=== PATIENT | female | born 1990 | race American Indian/Alaskan Native ===

== ENCOUNTER 2017-12-19 08:51 | Emergency (ER) | payer SELFPAY ==
[2017-12-19 09:50] LABS: Bacteria,Urine 1+ /HPF (Negative); Bilirubin,Urine NEG (Negative); Blood,Urine NEG (Negative); Color,Urine Yellow (Yellow); HCG Qualitative,Urine Negative (Negative); Mucus,Urine 2+ /HPF; RBC,Urine < 1.0 /HPF (0.0-6.0); Urobilinogen,Urine < 2.0 mg/dL (<2.0)
[2017-12-19] MEDS ORDERED: NACL 0.9% 1000 ML 1,000 ML IV ONE (10:31)
[2017-12-19] MEDS ORDERED: ZOFRAN IV ONE ×2 (10:31→12:55)
[2017-12-19] MEDS ORDERED: PEPCID IV ONE (10:32)
[2017-12-19] MEDS ORDERED: MILK OF MAGNESIA PO ONE (10:32)
[2017-12-19] MEDS ORDERED: MORPHINE IV ONE (10:34)
[2017-12-19 10:52] LABS: Hemoglobin 13.9 gm/dl (10.1-14.3); Mean Corpuscular HGB Conc 33 % (30-34); Mean Corpuscular Hemoglobin 28 pg (28-32); Mean Corpuscular Volume 85 fl (79-97); Red Blood Count 4.95 M/mm3 (3.65-5.03); Red Cell Distribution Width 15.2 % (13.2-15.2)
[2017-12-19 11:11] LABS: Albumin 3.9 g/dL (3.9-5); BUN/Creatinine Ratio 19; Blood Urea Nitrogen 13 mg/dL (7-17); Calcium 9.4 mg/dL (8.4-10.2); Hemolysis Index 92; Lipase 90 units/L (13-60)
[2017-12-19 11:28] LABS: Alanine Aminotransferase 14 units/L (7-56)
[2017-12-19] MEDS ORDERED: NACL ONE (11:31)
[2017-12-19 12:20] LABS: Anisocytosis 1+; Band Neutrophils # (Manual) 0.4 K/mm3; Basophils % (Manual) 0 % (0.0-1.8); Eosinophils % (Manual) 0 % (0.0-4.3); Platelet Estimate Consistent w Auto; Total Cells Counted 200
[2017-12-19 12:21] LABS: Platelet Count 274 K/mm3 (140-440)
[2017-12-19] MEDS ORDERED: DILAUDID IV ONE (12:55)
--- NOTE | 2017-12-19 13:00 | Cat Scan Report ---
CT ABDOMEN PELVIS WITH CONTRAST: HISTORY: Severe periumbilical pain radiating to epigastric region. COMPARISON: none. TECHNIQUE: Helical CT in 1.25mm intervals following IV contrast. Sagittal and coronal reconstructions. FINDINGS: Lung bases: Normal. Liver: Normal. Biliary system: Normal. Pancreas: Normal. Spleen: Normal. Kidneys/ureters/bladder: Normal. Adrenal glands: Normal. Aorta: Normal. Intestines: Normal. Appendix: Normal. Pelvic viscera: Normal. Ascites: None. Adenopathy: None. Musculoskeletal: Normal. IMPRESSION: Unremarkable CT scan of the abdomen and pelvis with contrast.
[2017-12-19] MEDS ORDERED: ROCEPHIN/NS 2 GM/100 ML 2 GM/100 ML BAG IV ONE (13:03)
[2017-12-19] MEDS ORDERED: cefTRIAXone 2 GM in NACL 0.9% 20 ML IV ONE (13:15)
[2017-12-19] MEDS ORDERED: FLAGYL 500 MG/100 ML 500 MG/100 ML BAG IV NR (14:00)
[2017-12-19 14:34] LABS: Amphetamine Screen,Urine PRESUMPTIVE NEGATIVE; Benzodiazepines Screen,Urine PRESUMPTIVE NEGATIVE; Cocaine Screen,Urine PRESUMPTIVE NEGATIVE; Methadone Screen,Urine PRESUMPTIVE NEGATIVE; Opiate Screen,Urine PRESUMPTIVE NEGATIVE
[2017-12-19 14:52] LABS: Cannabinoid Screen,Urine PRESUMPTIVE POSITIVE
[2017-12-19] MEDS ORDERED: ULTRAM ONE (15:51)
[2017-12-19] MEDS ORDERED: ULTRAM PO ONE (15:51)
[2017-12-19 16:27] VITALS: BP 110/58
== END 2017-12-19 16:03 | disposition home or self-care (01) ==
LOC: ED 08:51
DX: R11.2 Nausea with vomiting, unspecified (principal); Z53.21 Procedure and treatment not carried out due to patient leaving prior to being seen by health care provider
CPT/HCPCS: 36415; 74177; 80053; 80307; 81001; 81025; 83690; 85007; 85025; 87210; 87591; J0696; J1170; J2270; J2405; J7030; Q9967

== ENCOUNTER 2017-12-23 10:35 | Emergency (ER) | payer SELFPAY ==
[2017-12-23 14:01] VITALS: BP 122/78
== END 2017-12-23 15:21 | disposition left against medical advice (07) ==
LOC: ED 10:35
DX: R10.9 Unspecified abdominal pain (principal); Z53.21 Procedure and treatment not carried out due to patient leaving prior to being seen by health care provider

== ENCOUNTER 2018-02-23 12:54 | Emergency (ER) | payer SELFPAY ==
[2018-02-23 14:05] VITALS: BP 162/94
[2018-02-23] MEDS ORDERED: ZOFRAN ODT PO ONE (14:05)
[2018-02-23 14:42] LABS: Alanine Aminotransferase 12 units/L (7-56); Albumin 3.5 g/dL (3.9-5); BUN/Creatinine Ratio 11; Blood Urea Nitrogen 8 mg/dL (7-17); Calcium 8.8 mg/dL (8.4-10.2); Hemolysis Index 4
[2018-02-23 14:49] LABS: Basophils % (Auto) 0.3 % (0.0-1.8); Hemoglobin 12.9 gm/dl (10.1-14.3); Lymphocytes # (Auto) 1.7 K/mm3 (1.2-5.4); Lymphocytes % (Auto) 9.2 % (13.4-35.0); Mean Corpuscular HGB Conc 32 % (30-34); Mean Corpuscular Hemoglobin 28 pg (28-32); Mean Corpuscular Volume 86 fl (79-97); Monocytes # (Auto) 1.2 K/mm3 (0.0-0.8); Monocytes % (Auto) 6.6 % (0.0-7.3); Platelet Count 343 K/mm3 (140-440); Red Blood Count 4.63 M/mm3 (3.65-5.03); Red Cell Distribution Width 14.1 % (13.2-15.2)
[2018-02-23] MEDS ORDERED: NACL 0.9% 1000 ML 1,000 ML IV ONE ×2 (17:29→18:48)
[2018-02-23] MEDS ORDERED: ZOFRAN IV ONE ×2 (17:29→21:16)
[2018-02-23] MEDS ORDERED: PEPCID IV ONE (17:29)
[2018-02-23] MEDS ORDERED: MORPHINE IV ONE ×2 (17:29→19:46)
--- NOTE | 2018-02-23 17:31 | Emergency Department Report ---
Blank Doc - Documentation Documentation: 30-year-old female with no previous abdominal surgery history presents to the hospital complaining of nausea, vomiting, diarrhea after eating a sandwich from [employer] yesterday. Patient started out with diarrhea now she has nausea vomiting with by mouth intolerance. Pain is in the upper abdomen area constant and worse with palpation. Patient complains of a little bit of blood in her vomitus today. No reports of fever Labs revealed. Positive leukocytosis Additional labs ordered, serum , UA pending CT pelvis IV contrast only Normal saline, morphine, Zofran, Pepcid initiated Mid-level to follow
--- NOTE | 2018-02-23 20:11 | Cat Scan Report ---
FINAL REPORT PROCEDURE: CT ABDOMEN PELVIS W CON TECHNIQUE: Computerized axial tomography of the abdomen and pelvis was performed after the IV injection of iodinated nonionic contrast. HISTORY: n,v,d wbc 19, epigastric pain COMPARISON: No prior studies are available for comparison. FINDINGS: Visualized lower thorax: No significant abnormality. Liver: No focal lesions are seen. The liver measures 19 centimeters craniocaudal. Spleen: Normal size and attenuation. Gallbladder and biliary system: Normal. Pancreas: Normal. Adrenals: Normal. Kidneys: Normal. GI tract: The appendix is visualized and does not appear inflamed. No bowel obstruction or acute inflammation is seen. Lymph nodes and mesentery: Normal. Vasculature: Normal. Bladder: Normal. Reproductive organs: Grossly unremarkable. Peritoneum: No free fluid. Musculoskeletal structures: No significant abnormality. Other: None. IMPRESSION: No acute abnormality is identified
[2018-02-23 20:56] LABS: Bilirubin,Urine NEG (Negative); Blood,Urine NEG (Negative); Color,Urine Yellow (Yellow); Mucus,Urine 3+ /HPF; RBC,Urine < 1.0 /HPF (0.0-6.0); Urobilinogen,Urine < 2.0 mg/dL (<2.0)
--- NOTE | 2018-02-24 01:00 | Emergency Department Report ---
ED N/V/D HPI - General Chief complaint: Nausea/Vomiting/Diarrhea Stated complaint: VOMITING Time Seen by Provider: 02/23/18 17:23 Source: patient Mode of arrival: Ambulatory Limitations: No Limitations - History of Present Illness Initial comments: 27-year-old female past medical history obesity presents with complaint of nausea vomiting diarrhea since yesterday. Patient states that she suspects she became sick after eating a sandwich from [employer]. Denies any current fevers chills chest pain shortness of breath. States that her nausea and abdominal pain are slightly better than when she first came to the ED. Patient has received fluid antiemetics and pain medicine. Patient is currently awake alert and oriented 3. Denies fevers or chills denies dysuria hematuria or increased urinary frequency. Denies any bloody stools. States she had slightly watery diarrhea and watery vomit earlier. Denies any recent travel or antibiotic use. MD complaint: nausea, vomiting, diarrhea, abdominal pain Onset/Timin -: days(s) Description of Vomiting: food contents, watery Description of Diarrhea: water Location: epigastric Severity: moderate Consistency: intermittent Context: possible food poisoning Associated Symptoms: nausea/vomiting - Related Data Previous Rx's Medication Instructions Recorded Last Taken Type HYDROcodone/APAP 5-325 [[place] 1 each PO Q6HR PRN #14 tablet 03/21/14 Unknown Rx 5/325] Hyoscyamine Subl [Levsin Sl] 0.125 mg SL Q4HR PRN #14 tablet 03/21/14 Unknown Rx Ondansetron [Zofran Odt] 4 mg PO Q4H #14 tab.rapdis 03/21/14 Unknown Rx Ondansetron [Zofran Odt] 4 mg PO Q4H PRN #14 tab.rapdis 03/21/14 Unknown Rx Cyclobenzaprine [Flexeril] 10 mg PO TID PRN #30 tablet 12/19/17 Unknown Rx Doxycycline Hyclate [Doxycycline 100 mg PO Q12HR #20 tab 12/19/17 Unknown Rx Hyclate TAB] metroNIDAZOLE [Flagyl TAB] 500 mg PO Q8HR #21 tablet 12/19/17 Unknown Rx Ondansetron [Zofran Odt] 4 mg PO Q8H PRN #14 tab.rapdis 02/24/18 Unknown Rx Allergies Allergy/AdvReac Type Severity Reaction Status Date / Time No Known Allergies Allergy Unverified 03/20/14 16:59 ED Review of Systems ROS: Stated complaint: VOMITING Other details as noted in HPI Constitutional: denies: chills, fever Eyes: denies: eye pain, eye discharge, vision change ENT: denies: ear pain, throat pain Respiratory: denies: cough, shortness of breath, wheezing Cardiovascular: denies: chest pain, palpitations Endocrine: no symptoms reported Gastrointestinal: nausea, vomiting. denies: abdominal pain, diarrhea Genitourinary: denies: urgency, dysuria, discharge Musculoskeletal: denies: back pain, joint swelling, arthralgia Skin: denies: rash, lesions Neurological: denies: headache, weakness, paresthesias Psychiatric: denies: anxiety, depression Hematological/Lymphatic: denies: easy bleeding, easy bruising ED Past Medical Hx - Past Medical History Previous Medical History?: Yes Hx Asthma: Yes Additional medical history: PCOS - Surgical History Past Surgical History?: Yes Additional Surgical History: T & A - Social History Smoking Status: Current Some Day Smoker Substance Use Type: None - Medications Home Medications: Home Medications Medication Instructions Recorded Confirmed Last Taken Type HYDROcodone/APAP 5-325 [[place] 1 each PO Q6HR PRN #14 tablet 03/21/14 Unknown Rx 5/325] Hyoscyamine Subl [Levsin Sl] 0.125 mg SL Q4HR PRN #14 tablet 03/21/14 Unknown Rx Ondansetron [Zofran Odt] 4 mg PO Q4H #14 tab.rapdis 03/21/14 Unknown Rx Ondansetron [Zofran Odt] 4 mg PO Q4H PRN #14 tab.rapdis 03/21/14 Unknown Rx Cyclobenzaprine [Flexeril] 10 mg PO TID PRN #30 tablet 12/19/17 Unknown Rx Doxycycline Hyclate [Doxycycline 100 mg PO Q12HR #20 tab 12/19/17 Unknown Rx Hyclate TAB] metroNIDAZOLE [Flagyl TAB] 500 mg PO Q8HR #21 tablet 12/19/17 Unknown Rx Ondansetron [Zofran Odt] 4 mg PO Q8H PRN #14 tab.rapdis 02/24/18 Unknown Rx ED Physical Exam - General Limitations: No Limitations General appearance: alert, in no apparent distress - Head Head exam: Present: atraumatic, normocephalic - Eye Eye exam: Present: normal appearance - ENT ENT exam: Present: mucous membranes moist - Neck Neck exam: Present: normal inspection - Respiratory Respiratory exam: Present: normal lung sounds bilaterally. Absent: respiratory distress - Cardiovascular Cardiovascular Exam: Present: regular rate, normal rhythm. Absent: systolic murmur, diastolic murmur, rubs, gallop - GI/Abdominal GI/Abdominal exam: Present: soft, normal bowel sounds - Extremities Exam Extremities exam: Present: normal inspection - Back Exam Back exam: Present: normal inspection - Neurological Exam Neurological exam: Present: alert, oriented X3 - Psychiatric Psychiatric exam: Present: normal affect, normal mood - Skin Skin exam: Present: warm, dry, intact, normal color. Absent: rash ED Course Vital Signs 02/23/18 02/23/18 02/23/18 14:01 18:37 21:03 Temperature 98.9 F Pulse Rate 62 Respiratory 18 22 18 Rate Blood Pressure 162/94 O2 Sat by Pulse 99 Oximetry ED Medical Decision Making - Lab Data Result diagrams: 02/23/18 14:09 02/23/18 14:09 - Medical Decision Making A/P: Acute gastroenteritis, possible food poisoning, nausea and vomiting 1-patient tolerating by mouth fluid and food before discharge 2-CT shows no acute appendicitis and no other acute abnormality 3-urinalysis unremarkable. Patient does have leukocytosis but it is possible that this can be treated to persistent retching nausea and vomiting for over one day and stress of acute gastroenteritis stated dehydration 4-Zofran when necessary. Vital signs stable for discharge. I advised patient to eat simple tolerable foods such as prostate Jell-O and soup mashed potatoes and to avoid anything excessively spicy or greasy. I advised patient to return to the ED if she cannot tolerate fluid or food by mouth or develops any fevers chills worsened abdominal pain. Patient stated she understood my instructions. Follow-up with primary care. Critical care attestation.: If time is entered above; I have spent that time in minutes in the direct care of this critically ill patient, excluding procedure time. ED Disposition Clinical Impression: Gastroenteritis, Potential for food poisoning Nausea & vomiting Qualifiers: Vomiting type: unspecified Vomiting Intractability: non-intractable Qualified Code(s): R11.2 - Nausea with vomiting, unspecified Disposition: DC-01 TO HOME OR SELFCARE Is pt being admited?: No Does the pt Need Aspirin: No Condition: Stable Instructions: Gastroenteritis (ED), Food Poisoning (ED) Prescriptions: Ondansetron [Zofran Odt] 4 mg PO Q8H PRN #14 tab.rapdis PRN Reason: Nausea Referrals: [facility] [Provider Group] - 3-5 Days [facility] [Outside] - 3-5 Days Forms: AMA Form, Work/School Release Form(ED) Time of Disposition: 01:00
== END 2018-02-24 00:45 | disposition home or self-care (01) ==
LOC: ED 12:54
DX: K52.9 Noninfective gastroenteritis and colitis, unspecified (principal); J45.909 Unspecified asthma, uncomplicated; E28.2 Polycystic ovarian syndrome; F17.200 Nicotine dependence, unspecified, uncomplicated; Z79.899 Other long term (current) drug therapy
CPT/HCPCS: 36415; 74177; 80053; 81001; 84702; 85025; 96361; 96374; 96375; 96376; 99284; J2270; J2405; J7030; Q9967; Q0162

== ENCOUNTER 2020-03-07 16:42 | Emergency (ER) | payer OTHER ==
[2020-03-07] MEDS ORDERED: MORPHINE 4 MG/1 ML INJ IV ONE (17:01)
[2020-03-07] MEDS ORDERED: SODIUM CHLORIDE 0.9% 1000 ML 1,000 ML IV ONE (17:02)
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
[2020-03-07] MEDS ORDERED: fentaNYL 100 MCG/2 ML INJ IV ONE (19:07)
--- NOTE | 2020-03-07 20:36 | Cat Scan Report ---
CT head without contrast INDICATION : Headache. TECHNIQUE: Axial imaging performed from the skull apex through the skull base without the use of con trast. All CT scans at this location are performed using CT dose reduction for ALARA by means of aut omated exposure control. COMPARISON: None FINDINGS: Parenchyma: No acute intracranial hemorrhage or parenchymal abnormality. Ventricles: Ventricles are normal in size and appear symmetric. Soft tissues: Soft tissues including the orbits appear normal. Bones: No acute osseous abnormality. Sinuses: Sinuses and mastoid air cells are clear. IMPRESSION: No acute abnormality. Signer Name: Javier Riggins MD Signed: 03/07/2020 8:31 PM Workstation Name: [id number]
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
[2020-03-07] MEDS ORDERED: KETOROLAC 30 MG/1 ML INJ IV ONE (21:06)
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
[2020-03-07 21:45] VITALS: BP 118/84
== END 2020-03-07 21:47 | disposition home or self-care (01) ==
LOC: ED 16:42
DX: M25.531 Pain in right wrist (principal); M25.532 Pain in left wrist; M25.561 Pain in right knee; M25.562 Pain in left knee; M25.571 Pain in right ankle and joints of right foot; Z79.899 Other long term (current) drug therapy; Z98.890 Other specified postprocedural states; V49.49XA Driver injured in collision with other motor vehicles in traffic accident, initial encounter; Y92.410 Unspecified street and highway as the place of occurrence of the external cause; Y93.89 Activity, other specified; Y99.8 Other external cause status
CPT/HCPCS: 29125; 70450; 72125; 72170; 73030; 73100; 73560; 73600; 74022; 96374; 96375; 99285; J1885; J2270; J3010; J7030